=== PATIENT | female | born 1995 | race Caucasian/White ===

== ENCOUNTER → 2017-01-25 | Outpatient (CLI) | payer OTHER | LOC: CIMAGING 15:07 | PROVIDERS: ATTEND Family Medicine | DX: R20.0 Anesthesia of skin (principal) | CPT/HCPCS: 72040-PO ==

== ENCOUNTER 2018-08-19 14:14 | Emergency (ER) | payer OTHER ==
[2018-08-19 14:30] VITALS: BP 124/90
--- NOTE | 2018-08-19 14:45 | EDPHY ---
H & P Stated Complaint: pain and bruise top of left foot and 3rd toe Time Seen by Provider: 08/19/18 14:19 HPI/ROS: Chief Complaint: Foot pain HPI: 23-year-old woman presenting with pain in her distal left foot in the base of her 3rd toe. Patient states that she was rough-housing last night and accidentally kicked the back of her friends foot. She has had pain swelling and bruising on the top of her foot since then. She is able to weight bear. No prior injuries. ROS: 10 systems were reviewed and were negative except those elements noted in the HPI. PMH: Denies Social History: No smoking, occasional alcohol Family History: non-contributory Physical Exam: General: Awake, alert, no acute distress Left foot:. Patient has ecchymosis over the distal 3rd metatarsal with associated tenderness. There is no deformity. Sensations intact distally. She has 2+ capillary refill. 2+ dorsalis pedis pulses. No midfoot tenderness. No ankle tenderness. Skin: No rash - Personal History LMP (Females 10-55): Extended Cycle BCP/Inj Current Tetanus Diphtheria and Acellular Pertussis (TDAP): Yes Tetanus Vaccine Date: 2008 - Medical/Surgical History Hx Asthma: No Hx Chronic Respiratory Disease: No Hx Diabetes: No Hx Cardiac Disease: No Hx Renal Disease: No Hx Cirrhosis: No Hx Alcoholism: No Hx HIV/AIDS: No Hx Splenectomy or Spleen Trauma: No Other PMH: abscessed lymph node as child, otitis media - Social History Smoking Status: Current every day smoker Constitutional: Initial Vital Signs Temperature (C) 36.8 C 08/19/18 14:23 Heart Rate 82 08/19/18 14:23 Respiratory Rate 14 08/19/18 14:23 Blood Pressure 124/90 H 08/19/18 14:23 O2 Sat (%) 96 08/19/18 14:23 O2 Delivery Mode Room Air Allergies/Adverse Reactions: No Known Allergies Allergy (Verified 08/19/18 14:22) Home Medications: Medication Instructions Recorded NK [No Known Home Meds] 08/19/18 Medical Decision Making - Diagnostics Imaging Results: Proximal 3rd phalanx fracture per my interpretation. Imaging: I viewed and interpreted images myself ED Course/Re-evaluation: Patient's fractured toe was jeremi-taped to her 2nd toe by me. Patient placed in an orthopedic stiff soled shoe. She will be discharged with follow up with Orthopedics. Departure - Departure Disposition: Home, Routine, Self-Care Clinical Impression: Toe fracture Condition: Good Instructions: Toe Fracture (ED) Additional Instructions: Jeremi-tape it 3rd toe tear 2nd toe for support and splinting. Wear a supportive shoe at all times. Take ibuprofen, 600 mg every 8 hr. You may alternate with acetaminophen, 1000 mg every 8 hr. Follow up with Orthopedics in about 1-2 weeks for recheck. Referrals: Pk Soto MD [Medical Doctor] - As per Instructions
== END 2018-08-19 15:15 | disposition home or self-care (01) ==
LOC: CED 14:14
DX: S92.515A Nondisplaced fracture of proximal phalanx of left lesser toe(s), initial encounter for closed fracture (principal); W50.0XXA Accidental hit or strike by another person, initial encounter; Y93.83 Activity, rough housing and horseplay; Y92.9 Unspecified place or not applicable; Y99.8 Other external cause status
CPT/HCPCS: 73630-PO; L4386